=== PATIENT | female | born 2000 | race Caucasian/White ===

== ENCOUNTER 2022-10-20 18:56 | Emergency (ER) | payer MEDICAID, OTHER ==
[~2022-10-20] VITALS: Ht 167.6 cm; Wt 61.0 kg
[2022-10-20 18:59] VITALS: TEMP 96.9; O2SAT 96
[2022-10-20] MEDS ORDERED: NALO4SPR BOTHNSTRLS (19:16)
[2022-10-20] MEDS ORDERED: ONDANSETRON HCL 4MG/2ML INJ IV ONE (19:30)
[2022-10-20 21:29] VITALS: BP 103/57; PULSE 91; RESP 14
== END 2022-10-20 21:33 | disposition home or self-care (01) ==
LOC: ER 18:56 → EDBD 18:56 → ER 21:33
DX: T65.91XA Toxic effect of unspecified substance, accidental (unintentional), initial encounter (principal); Y92.9 Unspecified place or not applicable
CPT/HCPCS: 96374; 99283; J2405; Z7610